=== PATIENT | female | born 1955 | race Caucasian/White ===

== ENCOUNTER → 2021-05-23 | Outpatient (CLI) | payer OTHER ==
[~2021-05-23] MED LIST: BP MED; IBUP600 PO; IRBHYD300; LEVSOD100; LISI5 PO; MED FOR IBS; Norco 5-325 Ta1 EACH PO; OXYACE5T PO; PROM25 PO; RXOXYACE PO; THYROID MED
[2021-05-24 15:11] LABS: HPV 16 Negative (Negative); HPV 18 Negative (Negative); HPV OTHER HR TYPES Negative (Negative)
== END | disposition home or self-care (01) ==
LOC: LAB SHORT 16:14
PROVIDERS: Family Medicine
DX: Z01.419 Encounter for gynecological examination (general) (routine) without abnormal findings (principal)
CPT/HCPCS: 87624; G0123

== ENCOUNTER → 2022-12-22 | Outpatient (CLI) | payer OTHER ==
[~2022-12-22] MED LIST changes: +ELIQUIS5 M2 PO; +HYDHCL25; +PROP10 PO; +ZOLOFT50 MG PO
[2022-12-23 11:31] LABS: G. vaginalis (DNA Probe) Negative (NEGATIVE); T. vaginalis (DNA Probe) Negative (NEGATIVE)
[2022-12-23 11:32] LABS: Candida species (DNA Probe) Negative (NEGATIVE)
== END | disposition home or self-care (01) ==
LOC: LAB 17:12 → LAB SHORT 17:12
PROVIDERS: Family Medicine
DX: N76.4 Abscess of vulva (principal)
CPT/HCPCS: 87480; 87510; 87660

== ENCOUNTER → 2024-05-12 | Outpatient (CLI) | payer OTHER ==
[2024-05-12 10:05] LABS: Source, Urine Clean Catch
[2024-05-12 12:58] LABS: Appearance, Urine Clear (Clear); Bilirubin, Urine Neg (Neg); Blood, Urine Neg (Neg); Color, Urine Yellow (P-Yellow); Glucose Qualitative, Urine Neg (Neg); Ketones, Urine Neg (Neg); Leukocyte Esterase, Urine Neg (Neg); Nitrite, Urine Neg (Neg); Protein, Urine 1+ (Neg); Specific Gravity, Urine 1.015 (1.003-1.022); Urobilinogen, Urine NORM (Normal)
[2024-05-12 13:51] LABS: Creatinine, Urine Random 61.7 mg/dL (27.00-270.00)
[2024-05-12 13:53] LABS: Microalb/Creat Ratio UR, Rand 84.279 mg/g (0.000-30.000)
== END | disposition home or self-care (01) ==
LOC: LAB 06:38 → LAB SHORT 06:38
PROVIDERS: Internal Medicine Endocrinology, Diabetes & Metabolism
DX: N18.32 Chronic kidney disease, stage 3b (principal); E21.3 Hyperparathyroidism, unspecified
CPT/HCPCS: 36415; 80069; 82043; 82306; 82310; 82570; 83970; 84439; 84443; 84480

== ENCOUNTER → 2024-05-19 | Outpatient (CLI) | payer OTHER | END | disposition home or self-care (01) | LOC: LAB SHORT 08:45 → LAB 08:45 | PROVIDERS: Family Medicine | DX: E21.3 Hyperparathyroidism, unspecified (principal) | CPT/HCPCS: 81050; 84105 ==

== ENCOUNTER 2024-11-15 08:35 | Day surgery (SDC) | payer OTHER ==
[~2024-11-15] VITALS: Ht 167.6 cm; Wt 111.7 kg
[2024-11-15] VITALS (13 sets, daily range): BP systolic 96–150; BP diastolic 61–89
[~2024-11-15 08:35] MED LIST changes: +Inderal60 MG PO; -LEVSOD100; +LEVSOD100 PO; +LIOT5 PO; +LISI20 PO; +NYSTATIN CREAM TOP; +PRAM.125 PO; +SERT100 PO; +TRAZ50 PO
[2024-11-15] MEDS ORDERED: Chlorhexidine Mouth Care 15 ML UDC MT SCH (09:25)
[2024-11-15] MEDS ORDERED: CeFAZolin Sodium 2,000 MG in NS 100 ML IV SCH ×2 (09:25→21:00)
[2024-11-15] MEDS ORDERED: Ropivacaine 0.5% HCl/Pf 123.125 MG,EPINEPHrine HCL 0.25 MG,Ketorolac Tromethamine 15 MG... INFIL SCH (09:25)
[2024-11-15] MEDS ORDERED: Tranexamic Acid 100 ML IV SCH (09:34)
[2024-11-15] MEDS ORDERED: OMEP20ER PO (09:46)
[2024-11-15] MEDS ORDERED: CeFAZolin Sodium 2,000 MG VIAL ONE (10:59)
[2024-11-15] MEDS ORDERED: HYDROmorphone HCl/Pf 1MG SYR IV PRN ×3 (11:20→13:20)
[2024-11-15] MEDS ORDERED: Ondansetron HCl 2 MG / ML 2ML Vial IV PRN (11:25)
[2024-11-15] MEDS ORDERED: Magnesium Hydroxide Conc 10 ML UDC PO PRN (11:25)
[2024-11-15] MEDS ORDERED: Metoclopramide HCl 5MG / ML 2ML Vial IV PRN (11:25)
[2024-11-15] MEDS ORDERED: Ketorolac Tromethamine 15mg Vial IV SCH (12:00)
[2024-11-15] MEDS ORDERED: Midazolam HCl 1MG / ML 2ML Vial ONE (13:18)
[2024-11-15] MEDS ORDERED: Albuterol 2.5 MG/3 ML VIAL INH PRN (13:20)
[2024-11-15] MEDS ORDERED: FentaNYL Citrate 50 MCG/ML 2 ML Injection IV PRN ×2 (13:20)
[2024-11-15] MEDS ORDERED: Midazolam HCl 1MG / ML 2ML Vial IV ONE (13:20)
--- NOTE | 2024-11-15 16:45 | NUR ---
POST OP: ARRIVED TO ROOM VIA BED, A&OX4, DENIES ANY PAIN OR NAUSEA, PT HAD SPINAL ANESTHESIA PER PACU REPORT, UNABLE TO MOVE LE'S AT THIS TIME, DENIES ANY SENSATION ON LE'S, L KNEE W/ INDER WRAP, C/D/I, POLAR PACK IN PLACE, CONT. TO MONITOR FOR ANY CHANGES.
--- NOTE | 2024-11-15 20:37 | NUR ---
DISCHARGE SUMMARY POD 0 L TKA. VSS. BASELINE ORIENTATION, A&0 x4. TOLERATING ORALS, DENIES NAUSEA. VOIDING IND. AMBULATES USING FWW c SBA, STEADY GAIT. PT REPORTS PAIN TOLERABLE c ORAL MEDICATIONS & POLAR PACK. PRINEO/TELFA/TEG/INDER WRAP C/D/I. DISCHARGE EDUCATION PROVIDED, PT VERBALIZES UNDERSTANDING. D/C'd VIA WHEELCHAIR TO POV DRIVEN BY SPOUSE. ALL PERSONAL BELONGINGS c PT.
== END 2024-11-15 20:40 | disposition home or self-care (01) ==
LOC: ORSCMMR 08:35 → ORD 11:00 → ORSCMMR 11:00 → SURS 16:24 → ORSCMMR 20:40
PROVIDERS: Orthopaedic Surgery
PROC: 0SRD0JA Replacement of Left Knee Joint with Synthetic Substitute, Uncemented, Open Approach (ICD-10-PCS; principal; 2024-11-15 13:30)
DX: M17.12 Unilateral primary osteoarthritis, left knee (principal); I12.9 Hypertensive chronic kidney disease with stage 1 through stage 4 chronic kidney disease, or unspecified chronic kidney disease; N18.9 Chronic kidney disease, unspecified; Z86.718 Personal history of other venous thrombosis and embolism; Z79.01 Long term (current) use of anticoagulants; Z79.899 Other long term (current) drug therapy; E06.3 Autoimmune thyroiditis
CPT/HCPCS: 73560-LT; A9270; C1713; C1776; J0165; J0690; J0735; J1885; J2250; J2704; J2795; J7120